=== PATIENT | female | born 2000 | race Caucasian/White ===

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

== ENCOUNTER 2019-11-22 11:55 | Emergency (ER) | payer OTHER ==
[~2019-11-22] VITALS: Ht 157.5 cm; Wt 61.4 kg
[~2019-11-22 11:55] MED LIST changes: -CLAR500T PO; +CLAR500T97 PO; -MUCI600T34 PO; +MUCI600T37 PO
[2019-11-22] MEDS ORDERED: ESCI10TA2 (12:19)
[2019-11-22] MEDS ORDERED: NS 1,000 ML IV ONE (12:30)
[2019-11-22] MEDS ORDERED: KETOROLAC 30 MG/ML 1ML VIAL IV ONE (12:30)
[2019-11-22] MEDS ORDERED: ONDANSETRON 4MG/2ML VIAL IV ONE (12:30)
[2019-11-22 12:33] VITALS: BP 153/74
[2019-11-22 12:56] LABS: BASO % 0.4 % (0.0-1.0); EOS # 0.1 10^3/uL (0.0-0.5); EOS % 0.7 % (0.0-3.0); HEMATOCRIT 41.5 % (36.0-47.0); HEMOGLOBIN 13.6 g/dl (12.0-15.5); LYMPH # 1.6 10^3/uL (1.5-5.0); LYMPH % 19.5 % (24.0-44.0); MEAN CORPUSCULAR HEMOGLOBIN 26.9 pg (27.0-33.0); MEAN CORPUSCULAR HGB CONC 32.8 g/dl (32.0-36.5); MEAN CORPUSCULAR VOLUME 82.2 fl (80.0-96.0); MONO # 0.4 10^3/uL (0.0-0.8); MONO % 4.5 % (0.0-5.0); NEUTROPHILS % 74.7 % (36.0-66.0); PLATELET COUNT, AUTOMATED 231 10^3/uL (150-450); RED BLOOD COUNT 5.05 10^6/uL (4.00-5.40); WHITE BLOOD COUNT 8.1 10^3/uL (4.0-10.0)
[2019-11-22 13:15] LABS: BILIRUBIN,DIRECT 0.2 MG/DL (0.0-0.2); BILIRUBIN,TOTAL 0.9 MG/DL (0.2-1.0); TOTAL PROTEIN 7.7 GM/DL (6.4-8.2)
--- NOTE | 2019-11-22 14:25 | REP ---
Pelvic sonography: History: Lower abdominal pain. Rule out ovarian cysts. Findings: Transabdominal scanning demonstrates normal size uterus with dimensions of 7.4 x 3.0 x 5.1 cm. Endometrial echo 0.5 cm thick. No free fluid or focal uterine mass is seen. Visualized bladder david are smooth. Normal ovaries are seen bilaterally. Right ovary dimensions are 2.8 x 2.3 x 2.4 cm. The left ovary measures 2.5 x 2.0 x 2.6 cm. Impression: Normal pelvic sonography. Electronically Signed by Sachin Sears MD 11/22/2019 02:16 P
== END 2019-11-22 14:59 | disposition home or self-care (01) ==
LOC: M ED 11:55
DX: N94.6 Dysmenorrhea, unspecified (principal); R42 Dizziness and giddiness; R11.0 Nausea; F41.9 Anxiety disorder, unspecified; F32.9 Major depressive disorder, single episode, unspecified; Z79.899 Other long term (current) drug therapy
CPT/HCPCS: 76856; 80047; 80076; 81001; 83690; 84702; 85025; 87088; 93976; 96374; 96375; 99284; J1885; J2405

== ENCOUNTER → 2020-04-27 | Outpatient (CLI) | payer OTHER ==
[~2020-04-27] MED LIST changes: +ESCI10TA2; +LEXA1TAB PO
== END ==
LOC: M LABSMTC 10:05
PROVIDERS: ATTEND Anesthesiology
DX: Z20.828 Contact with and (suspected) exposure to other viral communicable diseases (principal)

== ENCOUNTER 2020-05-02 08:34 | Day surgery (SDC) | payer OTHER ==
[~2020-05-02] VITALS: Ht 160 cm; Wt 66.2 kg
[~2020-05-02 08:34] MED LIST changes: +MIDAZOLAM INJ 2MG/2ML VIAL (J2250 PER 1MG) ONE; +fentaNYL 100 MCG/2 ML INJECTION (J3010) ONE
[2020-05-02] MEDS ORDERED: LR 1,000 ML IV ONE (09:45)
[2020-05-02] MEDS ORDERED: dexameTHASONE 4 MG/ML 1ML VIAL (J1100 PER 1MG) ONE (10:16)
[2020-05-02] MEDS ORDERED: fentaNYL 100 MCG/2 ML INJECTION (J3010) ONE (10:18)
[2020-05-02] MEDS ORDERED: METOCLOPRAMIDE INJ 10MG/2ML VIAL (J2765 PER 1) ONE (10:19)
[2020-05-02] MEDS ORDERED: ACETAMINOPHEN 1000MG 100ML IV BTL (OFIRMEV) (J0131 PER 10MG) ONE (10:21)
[2020-05-02] MEDS ORDERED: SUGAMMADEX SODIUM 500 MG/5 ML VIAL (BRIDION) ONE (10:22)
[2020-05-02] MEDS ORDERED: LIDOCAINE 2% 100MG/5ML SDV (FOR ANES.) ONE (10:22)
[2020-05-02] MEDS ORDERED: KETOROLAC 60MG 2ML VIAL ONE (10:22)
[2020-05-02] MEDS ORDERED: ONDANSETRON 4MG/2ML VIAL ONE (10:22)
[2020-05-02] MEDS ORDERED: GLYCOPYRROLATE INJ 0.2 MG/ML 2 ML VIAL ONE (10:38)
[2020-05-02] MEDS ORDERED: ePHEDrine SULFATE 25 MG/5 ML(5MG/ML) SYRINGE ONE (10:41)
[2020-05-02] MEDS ORDERED: fentaNYL 100 MCG/2 ML INJECTION (J3010) IV PRN (12:00)
[2020-05-02] MEDS ORDERED: IBUPROFEN 600MG TAB PO PRN (12:00)
[2020-05-02] MEDS ORDERED: LR 1,000 ML IV SCH ×2 (12:00)
[2020-05-02] MEDS ORDERED: oxyCODONE 5MG TAB PO PRN (12:00)
[2020-05-02] MEDS ORDERED: ONDANSETRON 4MG/2ML VIAL IV PRN (12:00)
--- NOTE | 2020-05-02 13:13 | RO ---
OPERATIVE NOTE DATE OF OPERATION: 05/02/2020 PREOPERATIVE DIAGNOSIS: Pain, failed conservative measures, right and left lower quadrant pain. POSTOPERATIVE DIAGNOSIS: Pain, failed conservative measures, right and left lower quadrant pain, left and right lower quadrant adhesions which appeared to be of non-endometriotic source and endometriosis in the cul-de-sac. PROCEDURE: Laparoscopy with lysis of adhesions and separate laser ablation of endometriosis. SURGEON: Noreen Lewis MD ANESTHESIA: General endotracheal anesthesia. SPECIMEN: None. BRIEF DESCRIPTION OF PROCEDURE/FINDINGS: Yael was brought to the operating room where sufficient general endotracheal anesthesia was induced. She was prepped, draped and positioned in usual sterile fashion. Uterine manipulator was placed after the uterus had been sounded to 7.5 and bladder emptied as well. Attention was turned to the abdomen. Transverse semilunar incision was made below the umbilicus in this patient who had not previously had surgery, sharp and blunt dissection was continued through the subcutaneous tissues to the level of the rectus fascia, it was transversely incised, secured with #0 Vicryl retention sutures. Peritoneum was entered under direct visualization and the Chrissy cannula secured in place with #0 Vicryl retention sutures and CO2 insufflation then begun. After adequate CO2 insufflation the peritoneal cavity was visualized. There were normal shiny peritoneal surfaces throughout the upper anterior abdomen and there were no excrescences, ascites nor exudate but with Trendelenburg we were readily able to see some distorting adhesions on the left side as one often sees with bowel inflammation but also on the right side the appendix itself was firmly adhered to the lateral abdomen and pelvis just above the pelvic brim and placed under a degree of tension. There was no pus, no active inflammation. The scars did not look new or recently formed but the level of stretch of the tissues appeared to be quite significant. With the cold scissors we were able to cut these down, they were really relatively avascular so we did not need to use cautery or risk injury to the bowel. We were able to completely free the appendix from the pelvic brim there and right lower quadrant and as we took those multiple adhesions down, pictures were taken to document this, that just went right back down to normal size. Again, there did not appear to be any erythema, any softness to the tissues, did not have any of that sort of edematous friability that one sees with infection, did not appear to be any distention or evidence of pus or active appendicitis whatsoever. I think she has had previous inflammation of these tissues that resulted in adhesions, especially since she has not had previous surgery. We were able to completely take those down without any evidence of injury to the bowel or appendix. Moving down to the pelvis anterior uterus normal appearance of the uterus itself, tubes and ovaries normal appearance, did not appear to be any significant cysts. In the left ovarian fossa there is some annular scarring consistent with previous endometriosis but not active to treat at this moment and in the cul-de-sac, especially on the right uterosacral and the mid posterior uterus actually and then mid cul-de-sac as well there were endometrial implants. We were able to use the laser to destroy these and they were all accessible. We did not have any visible on the bowel, there were none visible on the ovaries or on the tubes. Both ovaries were mobile and normal fashion. The right ovary did not appear to have any significant scarring in the ovarian fossa either and both tubes are normal in appearance. We were able to laser ablate all the endometrial cysts we saw and we were able to take down those extensive adhesions as well. Having completed those two tasks we repeated our survey of the abdomen and there no abnormalities of the upper abdomen, anteriorly clear, there was no evidence of significant injury or other lesions to treat. The procedure was ended. ESTIMATED BLOOD LOSS FOR THE PROCEDURE: 5 mL. FLUID REPLACEMENT: Crystalloid. COMPLICATIONS: None. CONDITION AND DISPOSITION: Yael tolerated the procedure well and was recovering in the recovery room in good condition.
[2020-05-02 13:45] VITALS: BP 129/60
[2020-05-03] MEDS ORDERED: NORCO, ANEXSIA 5/325MG TABLET (HYDROcodone/ACETAMINOPHEN) PO PRN (06:00)
== END 2020-05-02 14:50 | disposition home or self-care (01) ==
LOC: M SDC 08:34
PROVIDERS: ATTEND Obstetrics & Gynecology
DX: K66.0 Peritoneal adhesions (postprocedural) (postinfection) (principal); N80.3 Endometriosis of pelvic peritoneum; K21.9 Gastro-esophageal reflux disease without esophagitis; F41.9 Anxiety disorder, unspecified; F32.9 Major depressive disorder, single episode, unspecified; Z79.899 Other long term (current) drug therapy
CPT/HCPCS: 58662; 81025; J0131; J1100; J1885; J2250; J2405; J2765; J3010

== ENCOUNTER 2025-02-09 12:36 | Day surgery (SDC) | payer OTHER ==
[~2025-02-09] VITALS: Ht 160 cm; Wt 58.5 kg
[~2025-02-09 12:36] MED LIST changes: +BUPR-766 PO; +COLA100C5 PO; +ESCI10TA16; -ESCI10TA2; +HYDR-643 PO; +LIDOCAINE 2% 100 MG/5 ML SDV (FOR ANES.) As Ordered ONE; -MIDAZOLAM INJ 2MG/2ML VIAL (J2250 PER 1MG) ONE; +MIRT1TAB PO; +MULT-90 PO; +VENL150C43 PO; -fentaNYL 100 MCG/2 ML INJECTION (J3010) ONE
[2025-02-09] MEDS ORDERED: MIDAZOLAM INJ 2 MG/2 ML VIAL As Ordered ONE (14:10)
[2025-02-09 15:00] VITALS: TEMP 97.3
[2025-02-09 15:05] VITALS: BP 116/59; O2SAT 100
== END 2025-02-09 15:20 | disposition home or self-care (01) ==
LOC: M OPP 12:36
PROVIDERS: ATTEND Surgery
DX: R10.30 Lower abdominal pain, unspecified (principal); K59.00 Constipation, unspecified; Z79.899 Other long term (current) drug therapy
CPT/HCPCS: 45378; J2250

== ENCOUNTER 2025-05-05 14:26 | Emergency (ER) | payer OTHER ==
[~2025-05-05] VITALS: Ht 160 cm; Wt 62.6 kg
[~2025-05-05 14:26] MED LIST changes: -LIDOCAINE 2% 100 MG/5 ML SDV (FOR ANES.) As Ordered ONE
[2025-05-05] MEDS: ONDANSETRON 4MG/2ML VIAL IV ONE (14:55)
[2025-05-05] MEDS: NS (Normal Saline) 0.9% 1,000 ML IV ONE ×2 (14:55→15:41)
[2025-05-05 14:58] LABS: BASO # 0.1 10^3/uL (0.0-0.2); BASO % 0.4 % (0.0-1.0); EOS # 0.1 10^3/uL (0.0-0.5); EOS % 0.5 % (0.0-3.0); LYMPH # 0.5 10^3/uL (1.5-5.0); LYMPH % 2.3 % (24.0-44.0); MONO # 1.1 10^3/uL (0.0-0.8); MONO % 5.7 % (2.0-8.0); NEUTROPHILS # 18.1 10^3/uL (1.5-8.5); NEUTROPHILS % 90.6 % (36.0-66.0); PLATELET COUNT, AUTOMATED 379 10^3/uL (150-450)
[2025-05-05 15:22] LABS: HCG, SERUM QUALITATIVE NEGATIVE (NEGATIVE)
[2025-05-05 15:23] LABS: ALT/SGPT 19 U/L (7.0-40); AST/SGOT 19 U/L (<34); CALCIUM LEVEL 9.4 MG/DL (8.5-10.1); CARBON DIOXIDE LEVEL 19 MMOL/L (20-31); CHLORIDE LEVEL 105 MMOL/L (98-107); CREATININE FOR GFR 0.81 MG/DL (0.55-1.30); GLOMERULAR FILTRATION RATE > 90.0 (>60); POTASSIUM SERUM 4.2 MMOL/L (3.5-5.1); SODIUM LEVEL 139 MMOL/L (136-145)
[2025-05-05] MEDS: MAG SULF 1GM/100ML (MAG RUN) 1 GM in IV 1 EA IV ONE (15:37)
[2025-05-05] MEDS: KETOROLAC 30 MG/ML 1 ML VIAL IV ONE (15:38)
[2025-05-05] MEDS: PANTOPRAZOLE 40MG VIAL IV ONE (16:46)
[2025-05-05 17:09] LABS: BASO # 0.1 10^3/uL (0.0-0.2); BASO % 0.4 % (0.0-1.0); EOS # 0.0 10^3/uL (0.0-0.5); EOS % 0.1 % (0.0-3.0); LYMPH # 0.3 10^3/uL (1.5-5.0); LYMPH % 1.8 % (24.0-44.0); MONO # 0.8 10^3/uL (0.0-0.8); MONO % 5.4 % (2.0-8.0); NEUTROPHILS # 13.2 10^3/uL (1.5-8.5); NEUTROPHILS % 92.0 % (36.0-66.0)
[2025-05-05 17:15] LABS: PLATELET COUNT, AUTOMATED 238 10^3/uL (150-450)
[2025-05-05 17:28] LABS: CALCIUM LEVEL 7.3 MG/DL (8.5-10.1); CARBON DIOXIDE LEVEL 23 MMOL/L (20-31); CHLORIDE LEVEL 112 MMOL/L (98-107); CREATININE FOR GFR 0.78 MG/DL (0.55-1.30); GLOMERULAR FILTRATION RATE > 90.0 (>60); POTASSIUM SERUM 4.1 MMOL/L (3.5-5.1); SODIUM LEVEL 143 MMOL/L (136-145)
[2025-05-05] MEDS ORDERED: ONDA-282 PO (17:34)
[2025-05-05 18:00] VITALS: BP 114/62; TEMP 99.1; O2SAT 100
== END 2025-05-05 17:57 | disposition home or self-care (01) ==
LOC: M ED 14:26
DX: R11.2 Nausea with vomiting, unspecified (principal); R19.7 Diarrhea, unspecified; F41.9 Anxiety disorder, unspecified; F32.A Depression, unspecified; Z79.899 Other long term (current) drug therapy
CPT/HCPCS: 80048; 80076; 83690; 84703; 85025; 87486; 87581; 87633; 87798; 96361; 96365; 96375; 99284; J1885; J2405; J2470; J3475